=== PATIENT | female | born 1990 | race Two or more races ===

== ENCOUNTER 2025-05-29 02:49 | Emergency (ER) | payer SELFPAY ==
[~2025-05-29] VITALS: Ht 160 cm; Wt 122.6 kg
[2025-05-29 02:50] VITALS: BP 130/84; PULSE 94; RESP 16; TEMP 97.9; O2SAT 97
[2025-05-29] MEDS: diphenhdrAMINE HCL 50 MG/1 ML VL IM ONE (03:21)
[2025-05-29] MEDS: methylPREDNISolone SOD SUCC 125 MG/2 ML VL IM ONE (03:21)
[2025-05-29] MEDS ORDERED: DIPH25CA66 PO (03:32)
[2025-05-29] MEDS ORDERED: EPIN0.3I24 IJ (03:32)
[2025-05-29] MEDS ORDERED: PRED20TA2 PO (03:32)
--- NOTE | 2025-05-29 03:33 | ED.PDOC ---
HPI Allergic reaction HPI Comments 35 year old female presents to ER with complaints of allergic reaction x 1 day. Patient states she started experiencing unprovoked swelling to lips at 8 p.m. prior to arrival to ER with associated "heat rash" to abdomen x 3 days. States she did take Benadryl at 8:30 p.m. prior to arrival to ER without relief. Reece ball presents to ER ambulatory on arrival, with steady gait, in no distress with mild swelling noted diffuse to lips and mild urticaria noted to right side of abdomen with vitals stable. Denies fever, shortness of breath, chest pain, difficulty swallowing, n/v, abdominal pain or any further symptoms/complaints Chief Complaint: Allergic Reaction Time Seen by MD: 03:01 Primary Care Provider: UNKNOWN Reviewed Notes: Nurses Notes, Medications, Allergies Allergies: Coded Allergies: NO KNOWN ALLERGIES (Unverified , 05/29/25) Home Meds Active Scripts Epinephrine (Epinephrine) 0.3 Mg/0.3 Ml Inj, 0.3 MG IJ ONCE, #1 INJ 0 Refills Prov:ALLIE VANEGAS 05/29/25 Diphenhydramine Hcl (Benadryl Allergy) 25 Mg Cap, 2 CAP PO Q6HPRN, #30 CAP 0 R efills Prov:ALLIE VANEGAS 05/29/25 Prednisone (Prednisone) 20 Mg Tab, 20 MG PO BID for 5 Days, #10 TAB 0 Refills Prov:ALLIE VANEGAS 05/29/25 Information Source: Patient Mode of Arrival: Ambulatory Past Medical History Past Medical History (Other): PCOS Surgical History: Appendectomy [employer] History: No Pertinent [employer] History Family History Family History: Unknown Social History Smoker: Non-Smoker Alcohol: Denies ETOH Use Drugs: Denies Drug Use Lives In: Home Constitutional: denies: chills, diaphoresis, fatigue, fever, malaise, sweats, weakness, others EENTM: denies: blurred vision, double vision, ear bleeding, ear discharge, ear drainage, ear pain, ear ringing, eye pain, eye redness, hearing loss, mouth pain, mouth swelling, nasal discharge, nose bleeding, nose congestion, nose pain, photophobia, tearing, throat pain, throat swelling, voice changes, others Respiratory: denies: cough, hemoptysis, orthopnea, SOB at rest, shortness of breath, SOB with excertion, stridor, wheezing, others Cardiovascular: denies: chest pain, dizzy spells, diaphoresis, Dyspnea on exertion, edema, irregular heart beat, left arm pain, lightheadedness, palpitations, PND, syncope, others Gastrointestinal: denies: abdomen distended, abdominal pain, blood streaked bowels, constipated, diarrhea, dysphagia, difficulty swallowing, hematemesis, melena, nausea, poor appetite, poor fluid intake, rectal bleeding, rectal pain, vomiting, others Genitourinary: denies: abnormal vagina bleeding, burning, dyspareunia, dysuria, flank pain, frequency, hematuria, incontinence, pain, , vagina discharge, urgency, others Neurological: denies: dizziness, fainting, headache, left sided numbness, left sided weakness, numbness, paresthesia, pre-existing deficit, right sided numbness, right sided weakness, seizure, speech problems, tingling, tremors, weakness, others Musculoskeletal: denies: back pain, gout, joint pain, joint swelling, muscle pain, muscle stiffness, neck pain, others Integumetry: reports: others (As stated in HPI) Allergic/Immunocompromised: reports: others (As stated in HPI) Hematologic/Lymphatic: denies: anemia, blood clots, easy bleeding, easy bruising, swollen glands, others Endocrine: denies: excessive hunger, excessive sweating, excessive thirst, excessive urination, flushing, intolerance to cold, intolerance to heat, unexplained weight gain, unexplained weight loss, others Psychiatric: denies: anxiety, bipolar disorder, depression, hopeless, panic disorder, schizophrenia, sleepless, suicidal, others Physical Exam General Appearance: No Apparent Distress, Obese HEENT: Normal ENT Inspection, PERRL/EOMI, Pharynx Normal, TMs Normal Neck: Full Range of Motion, Non-Tender, Normal Respiratory: Chest Non-Tender, Lungs Clear, No Accessory Muscle Use, No Respiratory Distress, Normal Breath Sounds Cardiovascular: No Murmur, No Gallop, Regular Rate/Rhythm Breast Exam: Deferred Gastrointestinal: Non Tender, No Pulsatile Mass, Soft Genitalia: Deferred Pelvic: Deferred Rectal: Deferred Extremities: Normal capillary refill, Normal range of motion Neurologic: Alert, No Motor Deficits, Normal Affect, Normal Mood, No Sensory Deficits Cerebellar Function: Normal Reflexes: Normal Skin: Dry, Warm, Other (Mild swelling noted diffuse to lips and mild urticaria noted to right side of abdomen. No angioedema/further skin changes noted) Peripheral Pulses: 2+ Radial (R), 2+ Radial (L), 2+ Brachial (R), 2+ Brachial (L) Lymphatic: No Adenopathy Was a procedure done? Was a procedure done?: No Sedation Sedation?: No Differential diagnosis (all) Differential Diagnosis: Anaphylaxis, Angioedema, Contact Dermatitis X-Ray, Labs, Meds, VS Vital Signs Date Time Temp Pulse Resp B/P (MAP) Pulse Ox O2 Delivery O2 Flow Rate FiO2 05/29/25 03:11 Room Air 05/29/25 02:50 97.9 94 16 130/84 97 97.9 Current Medications Medications (Trade) Dose Ordered Sig/[place] Route Start Time Stop Time Status Last Admin Methylprednisolone Sodium Succinate (Solu Medrol) 125 mg ONCE ONCE IM 05/29/25 03:15 05/29/25 03:16 DC 05/29/25 03:21 Diphenhydramine HCl (Benadryl Injection) 25 mg ONCE ONCE IM 05/29/25 03:15 05/29/25 03:16 DC 05/29/25 03:21 Solu-Medrol 125 mg IM ordered Benadryl 25 mg IM ordered Patient had significant improvement in symptoms, denied any shortness of breath, vitals stable and well appearing/in no distress prior to discharge Advised to drink plenty of fluids 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 in 1-2 days Patient verbalized understanding and agreeable with current plan of care Advised to return to ER immediately if symptoms worsen Time of 1ST Reevaluation: 03:01 Reevaluation 1ST: N/A Time of 2ND Reevaluation: 04:00 Patient Education/Counseling: Diagnosis, Treatment, Prognosis, Need For Follow Up Family Education/Counseling: No Family Present SEPSIS Sepsis Screen Date sepsis recognized/suspect: May 29, 2025 Time Sepsis recognized/suspect: 251 Recent Procedure: No On Antibiotic Therapy: No Respiratory Rate >20: No Heart Rate >90: No Temp<36 C (96.8 F) or >38.3 C: No SBP <90 or MAP <65 mmHG: No New Acute Mental Status Change: No Is the patient on CPAP, BIPAP,: No Vital Signs Date Time Temp Pulse Resp B/P (MAP) Pulse Ox O2 Delivery O2 Flow Rate FiO2 05/29/25 03:11 Room Air 05/29/25 02:50 97.9 94 16 130/84 97 97.9 Medications Medications Dose Ordered Sig/[place] Route Start Time Stop Time Status Last Admin Dose Admin Diphenhydramine HCl 25 mg ONCE ONCE IM 05/29/25 03:15 05/29/25 03:16 DC 05/29/25 03:21 Methylprednisolone Sodium Succinate 125 mg ONCE ONCE IM 05/29/25 03:15 05/29/25 03:16 DC 05/29/25 03:21 Departure 1 Departure Time of Disposition: 04:02 Impression: Primary Impression: Allergic reaction Qualified Codes: T78.40XA - Allergy, unspecified, initial encounter Disposition: HOME / SELF CARE / HOMELESS Condition: Stable e-Prescriptions Epinephrine (Epinephrine) 0.3 Mg/0.3 Ml Inj 0.3 MG IJ ONCE, #1 INJ 0 Refills Prov: ALLIE VANEGAS 05/29/25 Diphenhydramine Hcl (Benadryl Allergy) 25 Mg Cap 2 CAP PO Q6HPRN, #30 CAP 0 Refills Prov: ALLIE VANEGAS 05/29/25 Prednisone (Prednisone) 20 Mg Tab 20 MG PO BID for 5 Days, #10 TAB 0 Refills Prov: ALLIE VANEGAS 05/29/25 Discharged With: Friend Critical Care Note Critical Care Time?: No Stability Stability form required: No Heart Score Heart Score: Heart Score Response (Comments) Value History N/A 0 EKG N/A 0 Age N/A 0 Risk Factors N/A 0 Troponin N/A 0 Total 0 ALLIE VANEGAS May 29, 2025 03:33
== END 2025-05-29 04:07 | disposition home or self-care (01) ==
LOC: ER 02:49
DX: L50.9 Urticaria, unspecified (principal); T78.40XA Allergy, unspecified, initial encounter; Z90.49 Acquired absence of other specified parts of digestive tract; X58.XXXA Exposure to other specified factors, initial encounter
CPT/HCPCS: 96372; 99284; J1200; J2919